=== PATIENT | male | born 1965 | race Caucasian/White ===

== ENCOUNTER 2020-11-11 01:42 | Emergency (ER) | payer SELFPAY ==
[~2020-11-11] VITALS: Ht 172.7 cm; Wt 69.4 kg
[2020-11-11 01:58] VITALS: BP 155/89
--- NOTE | 2020-11-11 05:32 | NUR ---
pt was called to the ER. pt is requesting a covid test, and tylenol for h/a. also requesting a refill prescription for HCTZ 25mg daily. made aware
[2020-11-11] MEDS ORDERED: ACETAMINOPHEN ES 500 MG TABLET ONE (05:35)
[2020-11-11] MEDS ORDERED: ACETAMINOPHEN ES 500 MG TABLET PO ONE (06:00)
== END 2020-11-11 06:11 | disposition home or self-care (01) ==
LOC: ER 01:42
DX: I10 Essential (primary) hypertension (principal); R51.9 Headache, unspecified; Z20.828 Contact with and (suspected) exposure to other viral communicable diseases; Z59.0 Homelessness; K59.00 Constipation, unspecified
CPT/HCPCS: 99283; C9803; U0003; J7030